=== PATIENT | male | born 1940 | race Caucasian/White ===

== ENCOUNTER 2021-11-07 21:29 | Emergency (ER) | payer MEDICARE ==
[~2021-11-07] VITALS: Ht 172.7 cm; Wt 77.1 kg
[2021-11-07 21:29] VITALS: BP 126/57
[2021-11-07] MEDS ORDERED: ONDANSETRON 4 MG/2 ML VIAL IVP ONE (21:50)
[2021-11-07] MEDS ORDERED: NACL 0.9% 1,000 ML IV ONE (22:00)
[2021-11-07 22:08] LABS: BASOPHILS # (AUTO) 0.1 K/uL (0.00-0.22); BASOPHILS % (AUTO) 1.1 % (0.0-2.0); EOSINOPHILS # (AUTO) 0.3 K/uL (0-0.4); HEMATOCRIT 43.2 % (36-52); HEMOGLOBIN 14.6 g/dL (12.0-18.0); LYMPHOCYTES # (AUTO) 2.8 K/uL (2.0-11.5); LYMPHOCYTES % (AUTO) 24.2 % (20.5-51.1); MEAN CORPUSCULAR HEMOGLOBIN 30 pg (27-31); MEAN CORPUSCULAR HGB CONC 34 g/dL (33-37); MEAN CORPUSCULAR VOLUME 89.1 fL (80-94); MONOCYTES # (AUTO) 0.9 K/uL (0.8-1.0); MONOCYTES % (AUTO) 8.1 % (1.7-9.3); NEUTROPHILS # (AUTO) 7.4 K/uL (1.8-7.7); NEUTROPHILS % (AUTO) 63.6 % (42.2-75.2); PLATELET COUNT (AUTO) 281 K/uL (140-450); RED BLOOD CELL COUNT(AUTO) 4.85 MIL/uL (4.20-6.10); RED CELL DISTRIBUTION WIDTH 13.2 % (11.6-13.7); WHITE BLOOD COUNT (AUTO) 11.6 K/uL (4.8-10.8)
[2021-11-07 22:26] LABS: ALBUMIN 3.5 g/dL (3.4-5.0); ANION GAP 16.3 (8-16); ASPARTATE AMINOTRANSFERASE 11 U/L (15-37); CARBON DIOXIDE 21.9 mmol/L (21-32); CHLORIDE 100 mmol/L (98-107); CREATININE 1.4 mg/dL (0.6-1.3); GLUCOSE 119 mg/dL (74-106); POTASSIUM 3.2 mmol/L (3.5-5.1); SODIUM SERUM 135 mmol/L (136-145); TOTAL BILIRUBIN 1.6 mg/dL (0.0-1.0); UREA NITROGEN, BLOOD 16 mg/dL (7-18)
[2021-11-07 22:31] LABS: LIPASE 66 U/L (73-393); MAGNESIUM 1.9 mg/dL (1.8-2.4)
[2021-11-08 00:26] LABS: APPEARANCE,URINE CLEAR (CLEAR); BILIRUBIN,URINE NEGATIVE (NEGATIVE); BLOOD, URINE NEGATIVE (NEGATIVE); COLOR,URINE YELLOW (YELLOW); LEUKOCYTE ESTERASE ,URINE NEGATIVE (NEGATIVE); NITRITE, URINE NEGATIVE (NEGATIVE); UGLUCOSE NEGATIVE (NEGATIVE)
[2021-11-08] MEDS ORDERED: POTASSIUM CHLORIDE 10 MEQ TABER PO ONE (00:45)
[2021-11-08 01:35] VITALS: BP 128/78
== END 2021-11-08 01:40 | disposition home or self-care (01) ==
LOC: MED 21:29
DX: R11.2 Nausea with vomiting, unspecified (principal); R42 Dizziness and giddiness; Z20.822 Contact with and (suspected) exposure to COVID-19; Z98.890 Other specified postprocedural states
CPT/HCPCS: 36415; 70450; 71045; 80053; 81003; 83690; 83735; 83880; 84484; 85025; 87426; 93005; 96361; 96374; 99285; J2405; J7030; Q0092

== ENCOUNTER 2023-05-06 23:49 | Emergency (ER) | payer MEDICARE ==
[~2023-05-06] VITALS: Ht 170.2 cm; Wt 74.8 kg
[2023-05-06 23:56] VITALS: BP 141/74; PULSE 83; RESP 18; TEMP 97.4; O2SAT 98
[2023-05-07] MEDS: ALUMINUM HYD/MAG/SIMETHICONE 30 ML UDC PO ONE (00:25)
[2023-05-07] MEDS: MORPHINE SULFATE 4 MG/ML SYR IVP ONE ×2 (00:44→01:17)
[2023-05-07] MEDS: ONDANSETRON 4 MG/2 ML VIAL IVP ONE ×2 (00:45→06:57)
[2023-05-07 01:08] LABS: BASOPHILS # (AUTO) 0.1 K/uL (0.00-0.22); BASOPHILS % (AUTO) 0.5 % (0.0-2.0); EOSINOPHILS # (AUTO) 0.2 K/uL (0-0.4); EOSINOPHILS % (AUTO) 1.4 % (0.0-4.0); HEMATOCRIT 42.1 % (36-52); HEMOGLOBIN 14.2 g/dL (12.0-18.0); LYMPHOCYTES # (AUTO) 1.9 K/uL (2.0-11.5); LYMPHOCYTES % (AUTO) 13.1 % (20.5-51.1); MEAN CORPUSCULAR HEMOGLOBIN 29 pg (27-31); MEAN CORPUSCULAR HGB CONC 34 g/dL (33-37); MEAN CORPUSCULAR VOLUME 85.8 fL (80-94); MONOCYTES # (AUTO) 0.7 K/uL (0.8-1.0); MONOCYTES % (AUTO) 4.8 % (1.7-9.3); NEUTROPHILS # (AUTO) 11.9 K/uL (1.8-7.7); NEUTROPHILS % (AUTO) 80.2 % (42.2-75.2); PLATELET COUNT (AUTO) 270 K/uL (140-450); RED BLOOD CELL COUNT(AUTO) 4.91 MIL/uL (4.20-6.10); RED CELL DISTRIBUTION WIDTH 14.1 % (11.6-13.7); WHITE BLOOD COUNT (AUTO) 14.8 K/uL (4.8-10.8)
[2023-05-07 01:20] LABS: ANION GAP 15.6 (8-16); CALCIUM 8.9 mg/dL (8.5-10.1); CARBON DIOXIDE 23.8 mmol/L (21-32); CHLORIDE 101 mmol/L (98-107); CREATININE 1.4 mg/dL (0.6-1.3); GLUCOSE 170 mg/dL (74-106); POTASSIUM 3.4 mmol/L (3.5-5.1); SODIUM SERUM 137 mmol/L (136-145); UREA NITROGEN, BLOOD 12 mg/dL (7-18)
[2023-05-07 01:34] LABS: ALANINE AMINOTRANSFERASE 30 U/L (12-78); ALKALINE PHOSPHATASE 121 U/L (50-136); ASPARTATE AMINOTRANSFERASE 67 U/L (15-37); BILIRUBIN,DIRECT 0.3 mg/dL (0.0-0.3); TOTAL PROTEIN, SERUM 7.6 g/dL (6.4-8.2)
[2023-05-07 02:17] LABS: LIPASE > 1500 U/L (16-77)
[2023-05-07] MEDS: FAMOTIDINE 20 MG/2 ML VIAL IVP ONE (02:50)
[2023-05-07] MEDS: METOCLOPRAMIDE 10 MG/2 ML INJ VIAL IVP ONE (02:51)
[2023-05-07 03:02] VITALS: O2SAT 97
[2023-05-07 05:38] VITALS: O2SAT 97
[2023-05-07] MEDS: NACL 0.9% 1,000 ML IV ONE (07:07)
[2023-05-07 10:50] VITALS: BP 139/61; PULSE 68; RESP 19; TEMP 97.4; O2SAT 97
== END 2023-05-07 10:50 | disposition short-term general hospital (02) ==
LOC: MED 23:49
DX: K85.10 Biliary acute pancreatitis without necrosis or infection (principal); K56.609 Unspecified intestinal obstruction, unspecified as to partial versus complete obstruction; N18.9 Chronic kidney disease, unspecified; K21.9 Gastro-esophageal reflux disease without esophagitis; Z79.899 Other long term (current) drug therapy
CPT/HCPCS: 36415; 71045; 74177; 76705; 80048; 80076; 83690; 84484; 85025; 93005; 96361; 96374; 96375; 96376; 99291; J2270; J2405; J2765; J3490; J7030; Q0092; Q9967